=== PATIENT | female | born 1970 | race Caucasian/White ===

== ENCOUNTER → 2017-07-20 | Outpatient (CLI) | payer OTHER ==
[2017-07-20 07:28] LABS: Basophils # (auto) 0.1 uL; Basophils % (auto) 1.2 % (0.0-2.0); Eosinophils # (auto) 0.1 uL; Hematocrit 44.4 % (36.0-46.0); Hemoglobin 14.9 g/dL (12.2-16.2); Lymphocytes # (auto) 1.7 uL; Lymphocytes % (auto) 37.2 % (10.0-50.0); Mean Corpuscular Hemoglobin 28.2 pg (28.0-32.0); Mean Corpuscular Hgb Conc. 33.5 g/dL (32.0-36.0); Mean Corpuscular Volume 84.3 fL (80.0-100.0); Mean Platelet Volume 8.2 fL (6.9-10.8); Monocytes # (auto) 0.4 uL; Monocytes % (auto) 8.6 % (0.0-12.0); Neutrophils # (auto) 2.2 uL; Platelet Count (auto) 245 10^3/uL (140-450); Red Cell Distribution Width 13.5 % (11.8-14.3); White Blood Cell 4.4 10^3/uL (4.4-10.8)
[2017-07-20 07:42] LABS: BUN/Creatinine Ratio 13.4; Calcium 9.5 mg/dL (8.5-10.1)
== END | disposition home or self-care (01) ==
LOC: LAB 07:03
DX: K80.20 Calculus of gallbladder without cholecystitis without obstruction (principal)
CPT/HCPCS: 36415; 80048; 85025